=== PATIENT | female | born 1970 | race Caucasian/White ===

== ENCOUNTER → 2019-01-07 | Outpatient (CLI) | payer BC ==
--- NOTE | 2019-01-08 13:49 | Diagnostic Imaging Report ---
Digital mammogram. Bilateral screening with 3-D tomosynthesis and CAD This study was compared with prior exams of 03/13/2018 and 12/26/2016. At this time there are no current complaints. The current study was also evaluated with a Computer Aided Detection (CAD) system. FINDINGS: The fibroglandular tissue in both breasts is heterogeneously dense. This does limit the sensitivity of this exam. Overall, there does not appear to have been any significant change when compared to the prior study. No primary or secondary sign of malignancy is noted. IMPRESSION: There is no radiographic evidence for malignancy. ACR BI-RADS Category 1: Negative. Result letter will be mailed to the patient. Note: At least 10% of breast cancer is not imaged by mammography. Dictated by: Dictated on workstation # [id number]
== END ==
LOC: RAD 08:38
PROVIDERS: ATTEND Obstetrics & Gynecology
DX: Z12.31 Encounter for screening mammogram for malignant neoplasm of breast (principal)
CPT/HCPCS: 77067

== ENCOUNTER → 2019-04-29 | Outpatient (CLI) | payer BC ==
[2019-04-29 15:14] LABS: FREE T4 (FREE THYROXINE) 0.98 NG/DL (0.70-1.48)
== END ==
LOC: LAB FS 10:45
PROVIDERS: ATTEND Pediatrics
DX: E03.9 Hypothyroidism, unspecified (principal)
CPT/HCPCS: 36415; 84439; 84443

== ENCOUNTER → 2020-03-24 | Outpatient (CLI) | payer BC ==
--- NOTE | 2020-03-24 11:56 | Diagnostic Imaging Report ---
INDICATION: Routine screening. Comparison is made with prior mammogram 01/07/2019 and 03/13/2018. 2-D and 3-D bilateral screening mammography was performed with CAD. Scattered fibroglandular densities are identified bilaterally. Scattered benign calcifications are noted bilaterally. No mass or malignant appearing microcalcifications are identified. Axillae are unremarkable. IMPRESSION: BI-RADS Category 2 No mammographic features suspicious for malignancy are identified. ACR BI-RADS Category 2: Benign findings. Result letter will be mailed to the patient. Note: At least 10% of breast cancer is not imaged by mammography. Dictated by: Dictated on workstation # [id number]
== END ==
LOC: RAD 09:17
PROVIDERS: ATTEND Obstetrics & Gynecology
DX: Z12.31 Encounter for screening mammogram for malignant neoplasm of breast (principal)
CPT/HCPCS: 77063; 77067

== ENCOUNTER → 2021-03-29 | Outpatient (CLI) | payer BC ==
--- NOTE | 2021-03-29 18:35 | Diagnostic Imaging Report ---
INDICATION: Routine screening. COMPARISON is made with prior mammograms 03/24/2020 and 01/07/2019. 2-D and 3-D bilateral screening mammography was performed with CAD. Both breasts are heterogeneously dense, limiting the sensitivity of mammography. There are scattered benign calcifications. No mass or malignant-appearing microcalcifications are seen. The axillae are unremarkable. IMPRESSION: BI-RADS Category 2 No mammographic features suspicious for malignancy are identified. ACR BI-RADS Category 2: Benign findings. Result letter will be mailed to the patient. Note: At least 10% of breast cancer is not imaged by mammography. Dictated by: Dictated on workstation # [id number]
== END ==
LOC: RAD 09:00
PROVIDERS: ATTEND Obstetrics & Gynecology
DX: Z12.31 Encounter for screening mammogram for malignant neoplasm of breast (principal)
CPT/HCPCS: 77063; 77067

== ENCOUNTER → 2022-03-30 | Outpatient (CLI) | payer BC ==
--- NOTE | 2022-03-30 11:05 | Diagnostic Imaging Report ---
INDICATION: Routine screening. COMPARISON is made with prior mammograms 03/29/2021, 03/24/2020. 2-D and 3-D bilateral screening mammography was performed with CAD. Both breasts are heterogeneously dense, limiting the sensitivity of mammography. The parenchymal pattern is stable. No mass or malignant-appearing microcalcifications are seen. There are benign calcifications bilaterally. Axillae are unremarkable. IMPRESSION: BI-RADS Category 2 No mammographic features suspicious for malignancy are identified. ACR BI-RADS Category 2: Benign findings. Result letter will be mailed to the patient. Note: At least 10% of breast cancer is not imaged by mammography. Dictated by: Dictated on workstation # [id number]
== END ==
LOC: RAD 07:38
PROVIDERS: ATTEND Obstetrics & Gynecology
DX: Z12.31 Encounter for screening mammogram for malignant neoplasm of breast (principal)
CPT/HCPCS: 77063; 77067

== ENCOUNTER 2022-05-15 07:58 | Emergency (ER) | payer BC ==
[~2022-05-15] VITALS: Ht 155.5 cm; Wt 65.3 kg
[2022-05-15] MEDS ORDERED: IBUPROFEN 600 MG (MOTRIN) TAB PO ONE (08:30)
--- NOTE | 2022-05-15 08:49 | Diagnostic Imaging Report ---
EXAMINATION: Right ankle radiographs, 3 views. COMPARISON: None. HISTORY: 52-year-old female, injury. Right ankle pain. FINDINGS: There is a comminuted displaced distal fibular fracture extending above the level of the tibial plafond. There is widening of the medial clear space of the ankle mortise. There is no tibiotalar joint effusion. There is a calcaneal heel spur. There is minimal degenerative type enthesopathy at the Achilles tendon insertion. IMPRESSION: 1. Comminuted displaced distal fibular fracture extending upwards from the level of the tibial plafond. 2. Abnormal widening of the medial clear space of the ankle mortise concerning for ligamentous injury. Dictated by: Dictated on workstation # [id number]
[2022-05-15] MEDS ORDERED: ACHD5005 PO (08:57)
--- NOTE | 2022-05-15 08:58 | ED Lower Extremity ---
General Chief Complaint: Lower Extremity Stated Complaint: RT ANKLE INJ Nursing Triage Note: Patient presents to the ED wtih c/o right ankle pain. Reports she was taking her dogs outside last night stepped onto the steps and slipped and fell. Right ankle pain and swelling. Worse with weight-bearing and movement. Has been using ovi wrap, ice, and elevation. Source: patient Exam Limitations: no limitations History of Present Illness Date Seen by Provider: May 15, 2022 Time Seen by Provider: 08:15 Initial Comments Patient is a 14-year-old female presents with right ankle injury. Patient twisted her ankle last night while slipping on wet porch at home last evening. She reports persistent ankle pain tenderness and swelling with inability to bear weight. No other injury or pain complaint. No prior right ankle injury. Onset: yesterday Pain/Injury Location: right ankle Method of Injury: twisted Modifying Factors: Improves With Other Allergies and Home Medications Allergies Coded Allergies: Penicillins (Verified Allergy, Unknown, 05/15/22) Patient Home Medication List Home Medication List Reviewed: Yes Review of Systems Constitutional: see HPI Musculoskeletal: joint pain, joint swelling Past Vacjylt-Znhgyi-Wfpcec Hx Patient Social History Tobacco Use?: Yes Tobacco type used: Cigarettes Smoking Status: Current Everyday Smoker Substance use?: No Alcohol Use?: Yes Alcohol Frequency: Rarely Immunizations Up To Date Influenza Vaccine Up-to-Date: No; Not Current First/Initial COVID19 Vaccinat: Yes Second COVID19 Vaccination Jesus: Yes Past Medical History Surgery/Hospitalization HX: Hypothyroidism; Adnoidectomy; Tonsilectomy; Bunion removal Physical Exam Vital Signs Vital Signs - First Documented 05/15/22 08:15 Temp 36.7 Pulse 88 Resp 16 B/P (MAP) 112/69 (83) Pulse Ox 98 O2 Delivery Room Air Capillary Refill : Less Than 3 Seconds Height, Weight, BMI Height: '" Weight: lbs. oz. kg; 27.00 BMI Method: General Appearance: WD/WN, no apparent distress Ankles: right ankle bone tenderness, right ankle soft tissue tenderness, right ankle swelling Progress/Results/Core Measures Results/Orders My Orders Orders - ROSELIA MOLINA DO Ankle 3 View Right (05/15/22 08:22) Orthopedic Equiment (05/15/22 08:22) Crutches (05/15/22 08:22) Ibuprofen Tablet (Motrin Tablet) (05/15/22 08:30) Medications Given in ED Current Medications Medications Dose Ordered Sig/Mercedes Route Start Time Stop Time Status Last Admin Dose Admin Ibuprofen 600 mg ONCE ONCE PO 05/15/22 08:30 05/15/22 08:31 DC 05/15/22 08:42 600 MG Vital Signs/I&O 05/15/22 08:15 Temp 36.7 Pulse 88 Resp 16 B/P (MAP) 112/69 (83) Pulse Ox 98 O2 Delivery Room Air Blood Pressure Mean: 83 Departure Communication (Admissions) Right ankle x-ray: Comminuted distal fibular fracture with widening of mortise Patient placed in orthopedic boot crutches, pain medications and provided orthopedic follow-up. Return precautions reviewed. Patient verbalizes understanding and agreement with discharge instructions prior to departure. Impression Primary Impression: Ankle fracture Disposition: 01 HOME, SELF-CARE Condition: Stable Departure-Patient Inst. Decision time for Depature: 08:56 Referrals: JACOBO FREDERICK MD Patient Instructions: Ankle Fracture ED Add. Discharge Instructions: You were evaluated in the emergency department for right ankle injury. X-ray was performed which shows a fracture of your lateral ankle bone. Please wear orthopedic boot, use crutches, take Motrin for pain and hydrocodone as needed for additional relief. Follow-up with local orthopedic physician for reevaluation and further management. All discharge instructions reviewed with patient and/or family. Voiced understanding. Scripts Hydrocodone/Acetaminophen (Hydrocodone-Acetamin 5-325 mg) 5 Mg-325 Mg Tablet 1 TAB PO Q4H PRN for PAIN-MODERATE (5-7), #14 TAB Prov: ROSELIA MOLINA DO 05/15/22 ROSELIA MOLINA DO May 15, 2022 08:58
[2022-05-15 09:01] VITALS: BP 112/69
== END 2022-05-15 09:01 | disposition home or self-care (01) ==
LOC: EDUNIT# 07:58 → ER FS 07:59
DX: S82.451A Displaced comminuted fracture of shaft of right fibula, initial encounter for closed fracture (principal); F17.210 Nicotine dependence, cigarettes, uncomplicated; W01.0XXA Fall on same level from slipping, tripping and stumbling without subsequent striking against object, initial encounter; X50.1XXA Overexertion from prolonged static or awkward postures, initial encounter; Y92.009 Unspecified place in unspecified non-institutional (private) residence as the place of occurrence of the external cause
CPT/HCPCS: 73610

== ENCOUNTER → 2022-05-17 | Outpatient (CLI) | payer BC ==
[~2022-05-17] MED LIST: ACHD5005 PO; FEXO-338 PO; LEVO100C4 PO; MULT-974 PO
== END ==
LOC: ORTHO 15:11
PROVIDERS: ATTEND Orthopaedic Surgery
DX: S82.64XD Nondisplaced fracture of lateral malleolus of right fibula, subsequent encounter for closed fracture with routine healing (principal); X58.XXXD Exposure to other specified factors, subsequent encounter
CPT/HCPCS: 99203

== ENCOUNTER 2022-05-18 05:38 | Outpatient (CLI) | payer BC ==
[~2022-05-18] VITALS: Ht 154.9 cm; Wt 65.3 kg
[~2022-05-18 05:38] MED LIST changes: -FEXO-338 PO; -LEVO100C4 PO; -MULT-974 PO
[2022-05-18] MEDS ORDERED: FEXO-338 PO (14:12)
[2022-05-18] MEDS ORDERED: LEVO100C4 PO (14:12)
[2022-05-18] MEDS ORDERED: MULT-974 PO (14:12)
== END 2022-05-18 14:21 | disposition home or self-care (01) ==
LOC: PREOP 05:38
PROVIDERS: ATTEND Orthopaedic Surgery
DX: Z01.818 Encounter for other preprocedural examination (principal)

== ENCOUNTER 2022-05-22 07:32 | Day surgery (SDC) | payer BC ==
[2022-05-22] VITALS (12 sets, daily range): BP systolic 97–130; BP diastolic 62–89
[~2022-05-22] VITALS: Ht 154.9 cm; Wt 65.3 kg
[~2022-05-22 07:32] MED LIST changes: +FEXO-338 PO; +LEVO100C4 PO; +MULT-974 PO
[2022-05-22] MEDS ORDERED: BUPIVACAINE 0.25% 30 ML (SENSORCAINE) VIAL ONE (07:44)
[2022-05-22] MEDS ORDERED: LACTATED RINGERS 1,000 ML IV PRN (08:00)
[2022-05-22] MEDS ORDERED: CLINDAMYCIN 600 MG/50 ML IVPB 50 ML IV ONE (08:00)
[2022-05-22] MEDS ORDERED: fentaNYL INJ 100 MCG/2 ML AMP ONE (08:09)
[2022-05-22] MEDS ORDERED: MIDAZOLAM 2 MG/2 ML (VERSED) VIAL ONE (08:09)
--- NOTE | 2022-05-22 08:40 | Progress Note-Pre Operative ---
Pre-Operative Progress Note Date of Available H&P: May 17, 2022 Date H&P Reviewed: May 22, 2022 Time H&P Reviewed: 08:35 History & Physical: H&P Reviewed, Patient Examed, No changes noted Pre-Operative Diagnosis: Right Ankle Fracture JACOBO FREDERICK MD May 22, 2022 08:40
[2022-05-22] MEDS ORDERED: proPOfol 200 MG/20 ML (DIPRIVAN) VIAL IV ONE (09:19)
[2022-05-22] MEDS ORDERED: LIDOCAINE PF 2% 5 ML (XYLOCAINE) VIAL ONE (09:19)
[2022-05-22] MEDS ORDERED: BUPIVACAINE 0.25% 30 ML (SENSORCAINE) VIAL INJ ONE (09:40)
[2022-05-22] MEDS ORDERED: HYDROmorphone 2 MG/ML VIAL (DILAUDID) ONE (09:42)
[2022-05-22] MEDS ORDERED: ONDANSETRON 4 MG/2 ML (SDV) Z0FRAN ONE (10:21)
[2022-05-22] MEDS ORDERED: SEVOFLURANE (ULTANE) 15 ML INHAL SOLN ONE (10:29)
--- NOTE | 2022-05-22 10:38 | Operative Report - Ortho ---
Operative Report Surgeon (s)/[employer] (s) Surgeon JACOBO FREDERICK MD [employer] n/a Pre-Operative Diagnosis Right Ankle Fracture Post-Operative Diagnosis same Operative Report Date of Procedure: May 22, 2022 Name of Procedure Performed: Open Reduction and Internal Fixation of Right Lateral Malleolus Fracture Description & Findings After obtaining informed consent and marking the patient, patient did receive intravenous antibiotics. Taken to the operating room and general anesthesia was induced. Surgical timeout was taken. The right lower extremity was prepped and draped in the usual sterile fashion. Incision was made over the fracture and distal fibula. Dissection was carried down to the fracture and a periosteal elevator was used to expose the fibula proximally and distally. The fracture was provisionally reduced using a clamp. A [employer] distal fibular plate was selected and placed. A wire was placed through the plate across the main fract ure line and a second wire was placed distally to position and temporarily hold the plate. A nonlocking screw was placed in the diaphysis of the fibula. A nonlocking screw was then placed distally. C-arm demonstrated good position of the plate with near anatomic reduction of the fracture. Locking screws were used to fill the distal holes of the plate and the initial nonlocking screw was changed for a locking screw of the same length. Two additional locking screws were placed in the proximal portion of the plate. Wires and clamp were removed. C-arm demonstrated appropriate position of the plate and screws and maintained reduction of the fracture. External rotation stress view was performed and demonstrated intact mortise and intact syndesmosis. C-arm images were demonstrated appropriate reduction of the fractures and hardware in good position. Images were transferred to PACS. Wound was irrigated with normal saline. Closed with 2-0 vicryl, 3-0 vicryl, and 3-0 nylon. Wound was injected with local anesthetic. Dressed with xeroform, 4x4s, ABD, cast padding, soft roll, posterior splint, and KARLA wrap. Patient tolerated the procedure well and was stable to the recovery room. Anesthesia Type General Estimated Blood Loss minimal Specimen(s) collected/removed None JACOBO FREDERICK MD May 22, 2022 10:38
[2022-05-22] MEDS ORDERED: ACHD5005 PO (10:40)
--- NOTE | 2022-05-22 10:48 | Anesthesia-General Post-Op ---
General Patient Condition Mental Status/LOC: Same as Preop Cardiovascular: Satisfactory Nausea/Vomiting: Absent Respiratory: Satisfactory Pain: Controlled Complications: Absent Post Op Complications Complications None Follow Up Care/Instructions Patient Instructions None needed. Anesthesia/Patient Condition Patient Condition Patient is doing well, no complaints, stable vital signs, no apparent adverse anesthesia problems. No complications reported per nursing. CHIQUITA BERRY CRNA May 22, 2022 10:48
[2022-05-22] MEDS ORDERED: ONDANSETRON 4 MG/2 ML (SDV) Z0FRAN IVP PRN (11:00)
[2022-05-22] MEDS ORDERED: HYDROmorphone 2 MG/ML VIAL (DILAUDID) IV ONE (11:00)
--- NOTE | 2022-05-22 17:04 | Diagnostic Imaging Report ---
INDICATION: Fibular fracture. TECHNIQUE: Intraoperative views were obtained during ORIF of the distal fibular fracture. Four views were obtained with 23.7 seconds of fluoroscopic time used. FINDINGS: The intraoperative views demonstrate an oblique fracture of the distal fibula with anatomic alignment with plate and screws in place. The ankle joint appears in good alignment. IMPRESSION: Anatomic alignment of the distal fibular fracture status post ORIF. Dictated by: Dictated on workstation # [id number]
== END 2022-05-22 13:00 | disposition home or self-care (01) ==
LOC: SDC 07:32
PROVIDERS: ATTEND Orthopaedic Surgery
DX: S82.61XA Displaced fracture of lateral malleolus of right fibula, initial encounter for closed fracture (principal); F17.210 Nicotine dependence, cigarettes, uncomplicated; W01.0XXA Fall on same level from slipping, tripping and stumbling without subsequent striking against object, initial encounter
CPT/HCPCS: 27792; 76000; 84703; 87081; C1713 ×7

== ENCOUNTER → 2022-06-06 | Outpatient (CLI) | payer BC | LOC: ORTHO 13:57 | PROVIDERS: ATTEND Orthopaedic Surgery | DX: Z47.89 Encounter for other orthopedic aftercare (principal); E03.9 Hypothyroidism, unspecified; E66.9 Obesity, unspecified ==

== ENCOUNTER → 2022-07-06 | Outpatient (CLI) | payer BC ==
--- NOTE | 2022-07-06 16:11 | Diagnostic Imaging Report ---
INDICATION: Fibular fracture. TECHNIQUE/COMPARISON: AP, oblique, and lateral views of the right ankle were obtained with comparison made to the study of 05/15/2022. FINDINGS: There has been placement of a fixation plate along the lateral aspect of the fibula with reduction of the distal fibular shaft fracture. No new fracture or malalignment is identified. There is reduction in the abnormal widening of the medial ankle mortise from 6 to 4 mm. IMPRESSION: Anatomic alignment of the distal fibular shaft fracture post plate placement. There has also been reduction in the widening of the medial ankle mortise. Dictated by: Dictated on workstation # [id number]
== END ==
LOC: ORTHO 14:01
PROVIDERS: ATTEND Orthopaedic Surgery
DX: Z47.89 Encounter for other orthopedic aftercare (principal); E66.9 Obesity, unspecified; E03.9 Hypothyroidism, unspecified
CPT/HCPCS: 73610

== ENCOUNTER → 2022-08-22 | Outpatient (CLI) | payer BC ==
--- NOTE | 2022-08-22 18:07 | Diagnostic Imaging Report ---
EXAMINATION: Right ankle radiographs, 3 views. COMPARISON: July 06, 2022. HISTORY: 52-year-old female, follow-up sideplate and screw fixation hardware at the distal fibula. FINDINGS: There is sideplate and screw fixation hardware along the distal fibula. There is interval bony callus bridging of the prior distal fibular fracture. The fixation hardware is intact. The alignment of the ankle mortise is unremarkable. There is no identified acute fracture. There is no tibiotalar joint effusion. There is a calcaneal heel spur. There is very mild degenerative type enthesopathy at the Achilles tendon insertion. IMPRESSION: 1. Interval healing response and bony bridging across the prior distal fibular fracture with intact sideplate and screw fixation hardware. 2. Unremarkable alignment of the ankle mortise on current exam. Dictated by: Dictated on workstation # [id number]
== END ==
LOC: ORTHO 13:30
PROVIDERS: ATTEND Orthopaedic Surgery
DX: Z47.89 Encounter for other orthopedic aftercare (principal); E03.9 Hypothyroidism, unspecified; E66.9 Obesity, unspecified; Z72.0 Tobacco use
CPT/HCPCS: 73610

== ENCOUNTER → 2023-04-06 | Outpatient (CLI) | payer BC ==
--- NOTE | 2023-04-06 09:57 | Diagnostic Imaging Report ---
Indication: Routine screening. Comparison is made with prior mammograms 03/30/2022 and 03/29/2021. 2-D and 3-D bilateral screening mammography was performed with CAD. Both breasts are heterogeneously dense, limiting the sensitivity of mammography. There is an area of slight nodularity in the upper outer right breast which appears slightly more prominent when compared with prior exams. Additional views would be recommended. Left breast is unremarkable. There are scattered benign calcifications. No malignant-appearing microcalcifications are identified. Axillae are unremarkable. IMPRESSION: BI-RADS 0 Right breast density. Additional views are recommended for further evaluation. ACR BI-RADS Category 0: Incomplete. (Needs additional imaging evaluation). Result letter will be mailed to the patient. Note: At least 10% of breast cancer is not imaged by mammography. Dictated by: Dictated on workstation # [id number]
== END ==
LOC: RAD 07:20
PROVIDERS: ATTEND Nurse Practitioner Women's Health
DX: Z12.31 Encounter for screening mammogram for malignant neoplasm of breast (principal); N63.10 Unspecified lump in the right breast, unspecified quadrant
CPT/HCPCS: 77063; 77067

== ENCOUNTER → 2023-04-20 | Outpatient (CLI) | payer BC ==
--- NOTE | 2023-04-20 14:12 | Diagnostic Imaging Report ---
INDICATION: Right breast density. Patient presents for additional views. CORRELATION is made with screening study from 04/06/2023. Unilateral right 2-D and 3-D diagnostic mammography was performed. This included spot compression CC and ML views as well as conventional 90 degree lateral views. Additional views failed to demonstrate a discrete mass. The density noted in the outer right breast shows normal dispersion and most likely represents superimposed tissue. No underlying abnormality is detected. IMPRESSION: BI-RADS Category 1 Additional views fail to demonstrate a discrete mass. The patient may return to routine annual screening mammography. ACR BI-RADS Category 1: Negative. Result letter will be mailed to the patient. Note: At least 10% of breast cancer is not imaged by mammography. Dictated by: Dictated on workstation # [id number]
== END ==
LOC: RAD 13:34
PROVIDERS: ATTEND Nurse Practitioner Women's Health
DX: R92.321 Mammographic fibroglandular density, right breast (principal); R92.30 Dense breasts, unspecified
CPT/HCPCS: 77065; G0279